=== PATIENT | male | born 1955 | race Caucasian/White ===

== ENCOUNTER 2016-11-14 11:37 | Emergency (ER) | payer OTHER | END 2016-11-14 15:07 | disposition home or self-care (01) | LOC: ER 11:37 | DX: R51 Headache (principal); M54.2 Cervicalgia; M50.323 Other cervical disc degeneration at C6-C7 level; V43.52XA Car driver injured in collision with other type car in traffic accident, initial encounter; Y92.413 State road as the place of occurrence of the external cause | CPT/HCPCS: 70450; 72125; 96372; 99070; 99283-25; 99284; J8597 ==